=== PATIENT | male | born 1950 | race Caucasian/White ===

== ENCOUNTER → 2022-10-12 | Outpatient (CLI) | payer MEDICARE ==
--- NOTE | 2022-10-12 14:32 | MR ---
EXAMINATION TYPE: MR brain wo con DATE OF EXAM: 10/12/2022 2:20 PM COMPARISON: None. CLINICAL INDICATION:Male, 72 years old with history of I67.9 CEREBROVASCULAR DISEASE, UNSPECIFIED; PH H, TECHNIQUE: Multi planar, multi sequence imaging was performed through the brain. No gadolinium was gi aria. FINDINGS: The canales-white junctions, ventricular system, and cisterns appear unremarkable. Few foci of T2/FLAIR hyperintense signal within the bilateral subcortical white matter.. Midline structures show no abnor mality. Diffusion-weighted imaging shows no evidence of restricted diffusion. The susceptibility weig hted images do not reveal any evidence for micro-hemorrhage. Age-appropriate cerebral volume loss. The bone marrow signal is within normal limits. The globes are unremarkable. Mucous retention cysts i dentified within both inferior maxillary sinus with largest in the right measuring 2.8 cm. IMPRESSION: 1. No evidence of acute/subacute infarct. 2. Nonspecific white matter changes, likely secondary to small vessel ischemic disease.
== END | disposition home or self-care (01) ==
LOC: RADMRIMAIN 13:14
PROVIDERS: ATTEND Psychiatry & Neurology Neurology
DX: I67.9 Cerebrovascular disease, unspecified (principal); I63.9 Cerebral infarction, unspecified; R90.82 White matter disease, unspecified
CPT/HCPCS: 70551

== ENCOUNTER → 2024-04-26 | Outpatient (CLI) | payer MEDICARE ==
--- NOTE | 2024-04-26 09:59 | MR ---
EXAMINATION TYPE: MR Prostate wo/w con DATE OF EXAM: 04/26/2024 9:39 AM COMPARISON: None. CLINICAL INDICATION: Male, 74 years old with history of R97.20 elevated PSA; elevated psa and abnorma l biopsy TECHNIQUE: Multi-planar, multi-sequence imaging of the pelvis is performed prior to and following the uncomplicated administration of bolus intravenous gadolinium. IV Contrast: 9 mL Gadobutrol Interpretive Criteria: PI-RADS v2.1 SERUM PSA: 8.43 10-12-23, 10.70 03-27-24 SURGICAL PATHOLOGY: Biopsy 04/08/2020, normal pathology report. FINDINGS: Prostatic dimensions: 6.2 x 6.9 x 5.0 cm. Ellipsoid Volume:112.00 (PSA density=0.10 ng/mL/mL) CENTRAL GLAND (Central and Transition Zones/CZ+TZ): Scattered occluded BPH nodules in the anterior left peripheral zone apex with low DWI/ADC. Multiple b ilateral, heterogenous appearing hypertrophic stromal nodules, without suspicious lesion. Median lobe hypertrophy with protrusion into the base of the bladder. (PI-RADS 2) PERIPHERAL ZONE (PZ): Bilateral linear, indistinct wedgelike areas of low ADC, and low T2 signal, No evidence of masslike a bnormality, or localized perfusional hypervascularity, to further suggest a focus of clinically signi ficant prostate cancer. (PI-RADS 2) SEMINAL VESICLES (SV): Symmetric and unremarkable. PERIPROSTATIC TISSUES: Unremarkable. LYMPH NODES: No enlarged pelvic lymph node. REMAINING PELVIS: Bladder wall is within normal limits given distention. No abnormal free or organized intrapelvic fluid collection. No pathologic bowel dilation or mural thickening. Colonic diverticula are present. No hernia visualized OSSEOUS STRUCTURES: No suspicious osseous abnormality. IMPRESSION: 1. No specific features for high-risk prostate cancer. Couple anterior left peripheral zone extremity BPH nodule suggested. Maximum PI-RADS score: 2. 2. Substantial BPH, estimated gland volume 112.00 (PSA density=0.10 ng/mL/mL) 3. No suspicious osseous lesion. No lymphadenopathy. No evidence of prostate adenocarcinoma involving the periprostatic tissues. [facility], , 04/26/2024 9:56 AM
== END | disposition home or self-care (01) ==
LOC: RADMRIMAIN 08:39
PROVIDERS: ATTEND Urology
DX: N40.0 Benign prostatic hyperplasia without lower urinary tract symptoms (principal); R97.20 Elevated prostate specific antigen [PSA]; K57.30 Diverticulosis of large intestine without perforation or abscess without bleeding
CPT/HCPCS: 72197; A9585